=== PATIENT | female | born 1935 | race Caucasian/White ===

== ENCOUNTER 2023-04-29 16:27 | Inpatient (IN) | payer MEDICARE ==
[2023-04-29 18:24] LABS: Bacteria/HPF 2+ HPF (None Seen); Bilirubin Negative (Negative); Blood, Urine Negative (Negative); CAUTI Indications for Culture Alt mental st,lethar; Clarity Turbid (Clear); Glucose, Urine (Dipstick) Normal (Negative); Ketone, Urine Negative (Negative); Leukocyte 250 Leu/uL (Negative); Nitrite 1+ (Negative); Protein, Urine (Dipstick) Negative (Neg-Trace); RBC/HPF 0-3 HPF (0-3); Specific Gravity, Urine 1.012 (1.002-1.036); Squamous Epithelial 0-3 HPF (0-3); Urobilinogen Normal mg/dL (Less than 2)
[2023-04-29 18:25] LABS: Urine Culture Reflex No No
[2023-04-29 18:26] LABS: #Eosinphils 0.1 thou/uL (0.0-0.7); #Monocytes 0.5 thou/uL (0.11-0.59); #Neutrophils 8.8 thou/uL (1.40-6.50); %Basophils 0.3 % (0.0-1.0); %Lymphocytes 11.9 % (21.0-51.0); %Monocytes 4.9 % (0.0-10.0); %Neutrophils 81.5 % (42.0-75.0); Hematocrit 40.9 % (36.0-47.0); Hemoglobin 13.4 g/dL (12.0-16.0); Mean Corpuscular HGB CONC 32.8 g/dL (32.0-36.0); Mean Corpuscular Volume 91.5 fl (78.0-98.0); Mean Platelet Volume 11.4 fL (7.4-10.4); Platelet Count 206 10x3/uL (130-400); RBC Distribution Width 14.6 % (11.5-14.5); Red Blood Cell (RBC) Count 4.47 mill/uL (4.20-5.40); White Blood Cell (WBC) Count 10.8 10x3/uL (4.8-10.8)
[2023-04-29 18:48] LABS: ALT (SGPT) 13 U/L (8-55); AST (SGOT) 21 U/L (5-34); Alkaline Phosphatase 108 U/L (40-110); Anion Gap 13 mmol/L (10-20); BUN (Urea Nitrogen) 18 mg/dL (9.8-20.1); Bilirubin, Total 0.5 mg/dL (0.2-1.2); Calc. Creatinine Clearance 0 mL/min (70-130); Calcium 9.1 mg/dL (7.8-10.44); Carbon Dioxide 27 mmol/L (23-31); Chloride 103 mmol/L (98-107); Estimated GFR 57; Globulin 2.6 g/dL (2.4-3.5); Glucose 207 mg/dL (83-110); Protein, Total 6.6 g/dL (5.8-8.1); Sodium 140 mmol/L (136-145)
[2023-04-29 18:53] LABS: Troponin I 0.019 ng/mL (< 0.028)
[2023-04-29] MEDS ORDERED: Ondansetron PF 4 MG/2 ML Vial IVP PRN (19:25)
[2023-04-29] MEDS ORDERED: Acetaminophen 325 MG TAB PO PRN (19:25)
[2023-04-29] MEDS ORDERED: Ipratropium/Albuterol 3 ML NEB EZPAP PRN (19:28)
[2023-04-29] MEDS ORDERED: Potassium Chloride 20 MEQ TAB ONE (19:29)
[2023-04-29] MEDS ORDERED: LevoFLOXacin 750 mg/D5W 150 ml Premix Bag ONE (19:29)
[2023-04-29 20:00] LABS: Magnesium 1.7 mg/dL (1.6-2.6)
[2023-04-29] MEDS ORDERED: Potassium Chloride 20 MEQ (100 mL) BAG ONE (20:51)
[2023-04-29 21:19] LABS: Lactic Acid 2.4 mmol/L (0.5-2.2)
[2023-04-29] MEDS: Magnesium 2 GM/50 ML(in water) 2 GM in Premix 1 BAG IVPB SCH (21:40)
[2023-04-29 22:27] VITALS: BMI 26.6
[2023-04-30 05:21] LABS: #Eosinphils 0.3 thou/uL (0.0-0.7); #Monocytes 0.9 thou/uL (0.11-0.59); #Neutrophils 5.1 thou/uL (1.40-6.50); %Basophils 0.3 % (0.0-1.0); %Eosinophils 3.1 % (0.0-10.0); %Lymphocytes 29.1 % (21.0-51.0); %Monocytes 9.7 % (0.0-10.0); %Neutrophils 57.6 % (42.0-75.0); Hematocrit 38.9 % (36.0-47.0); Hemoglobin 12.5 g/dL (12.0-16.0); Mean Corpuscular HGB CONC 32.1 g/dL (32.0-36.0); Mean Corpuscular Hemoglobin 29.8 pg (27.0-31.0); Mean Corpuscular Volume 92.8 fl (78.0-98.0); Mean Platelet Volume 11.5 fL (7.4-10.4); Platelet Count 200 10x3/uL (130-400); RBC Distribution Width 14.6 % (11.5-14.5); Red Blood Cell (RBC) Count 4.19 mill/uL (4.20-5.40); White Blood Cell (WBC) Count 8.8 10x3/uL (4.8-10.8)
[2023-04-30 06:01] LABS: Anion Gap 12 mmol/L (10-20); BUN (Urea Nitrogen) 15 mg/dL (9.8-20.1); Calc. Creatinine Clearance 55 mL/min (70-130); Calcium 9.4 mg/dL (7.8-10.44); Carbon Dioxide 27 mmol/L (23-31); Chloride 105 mmol/L (98-107); Estimated GFR 68; Glucose 102 mg/dL (83-110); Magnesium 2.1 mg/dL (1.6-2.6); Potassium 3.4 mmol/L (3.5-5.1); Sodium 141 mmol/L (136-145)
[2023-04-30] MEDS: Sertraline 25 MG TAB PO SCH (08:27)
[2023-04-30] MEDS: Atorvastatin Calcium 40 MG TAB PO SCH (08:27)
[2023-04-30] MEDS: Furosemide 40 MG TAB PO SCH (08:27)
[2023-04-30] MEDS: Aspirin Chewable 81 MG TAB PO SCH (08:27)
[2023-04-30] MEDS: Potassium Bicarbonate/Cit Ac 20 MEQ TAB PO SCH (10:15)
[2023-04-30] MEDS ORDERED: Methyl Salicylate/Menthol 85 GM TUBE TOP PRN (13:55)
[2023-04-30] MEDS ORDERED: Senokot 8.6 MG TAB PO PRN (13:58)
[2023-04-30] MEDS: Gabapentin 100 MG CAP PO SCH ×2 (14:29→19:51)
[2023-04-30] MEDS: Acetaminophen 325 MG TAB PO PRN (14:30)
[2023-04-30] MEDS: LevoFLOXacin 250 mg/D5W 250 MG in Premix 1 BAG IVPB SCH (19:51)
[2023-04-30] MEDS: Magnesium Oxide 400 MG TAB PO SCH (19:52)
[2023-04-30] MEDS: Cyanocobalamin (Vitamin B-12) 1,000 MCG TAB PO SCH (19:52)
[2023-04-30] MEDS: Multivit, Therapeutic 1 TAB PO SCH (19:52)
[2023-04-30] MEDS: Heparin 5,000 UNITS/ML VIAL SC SCH (19:52)
[2023-04-30] MEDS: Melatonin 3 MG TAB PO PRN (23:17)
[2023-05-01] MEDS: Gabapentin 100 MG CAP PO SCH ×2 (01:58→10:18)
[2023-05-01 05:17] LABS: #Basophils 0.1 thou/uL (0.0-0.2); #Eosinphils 0.4 thou/uL (0.0-0.7); #Monocytes 0.8 thou/uL (0.11-0.59); #Neutrophils 5.8 thou/uL (1.40-6.50); %Basophils 0.5 % (0.0-1.0); %Eosinophils 3.9 % (0.0-10.0); %Lymphocytes 28.8 % (21.0-51.0); %Monocytes 8.4 % (0.0-10.0); %Neutrophils 58.1 % (42.0-75.0); Hematocrit 40.9 % (36.0-47.0); Mean Corpuscular HGB CONC 31.8 g/dL (32.0-36.0); Mean Corpuscular Hemoglobin 29.4 pg (27.0-31.0); Mean Corpuscular Volume 92.5 fl (78.0-98.0); Mean Platelet Volume 11.4 fL (7.4-10.4); Platelet Count 203 10x3/uL (130-400); RBC Distribution Width 14.7 % (11.5-14.5); Red Blood Cell (RBC) Count 4.42 mill/uL (4.20-5.40)
[2023-05-01 05:54] LABS: Anion Gap 15 mmol/L (10-20); BUN (Urea Nitrogen) 15 mg/dL (9.8-20.1); Calc. Creatinine Clearance 52 mL/min (70-130); Calcium 9.5 mg/dL (7.8-10.44); Carbon Dioxide 28 mmol/L (23-31); Chloride 101 mmol/L (98-107); Estimated GFR 63; Glucose 117 mg/dL (83-110); Magnesium 1.9 mg/dL (1.6-2.6); Potassium 3.5 mmol/L (3.5-5.1); Sodium 140 mmol/L (136-145)
[2023-05-01] MEDS ORDERED: Gabapentin 100 MG CAP PO SCH (09:00)
[2023-05-01] MEDS: Carvedilol 6.25 MG TAB PO SCH (19:49)
[2023-05-01] MEDS: tiZANidine HCl 4 MG TAB PO PRN (22:14)
[2023-05-02 07:43] LABS: #Eosinphils 0.6 thou/uL (0.0-0.7); #Monocytes 0.7 thou/uL (0.11-0.59); #Neutrophils 4.7 thou/uL (1.40-6.50); %Basophils 0.4 % (0.0-1.0); %Eosinophils 5.9 % (0.0-10.0); %Monocytes 7.9 % (0.0-10.0); %Neutrophils 50.5 % (42.0-75.0); Hemoglobin 13.2 g/dL (12.0-16.0); Mean Corpuscular HGB CONC 32.2 g/dL (32.0-36.0); Mean Corpuscular Hemoglobin 29.7 pg (27.0-31.0); Mean Corpuscular Volume 92.3 fl (78.0-98.0); Mean Platelet Volume 11.7 fL (7.4-10.4); Platelet Count 214 10x3/uL (130-400); RBC Distribution Width 14.8 % (11.5-14.5); Red Blood Cell (RBC) Count 4.44 mill/uL (4.20-5.40); White Blood Cell (WBC) Count 9.3 10x3/uL (4.8-10.8)
[2023-05-02 08:08] LABS: Anion Gap 14 mmol/L (10-20); BUN (Urea Nitrogen) 19 mg/dL (9.8-20.1); Calc. Creatinine Clearance 48 mL/min (70-130); Calcium 9.7 mg/dL (7.8-10.44); Carbon Dioxide 31 mmol/L (23-31); Chloride 98 mmol/L (98-107); Estimated GFR 58; Glucose 126 mg/dL (83-110); Magnesium 1.8 mg/dL (1.6-2.6); Potassium 3.8 mmol/L (3.5-5.1); Sodium 139 mmol/L (136-145)
[2023-05-02] MEDS: Gabapentin 100 MG CAP PO SCH (14:50)
[2023-05-02] MEDS: Pregabalin 50 MG CAP PO SCH (21:11)
[2023-05-02] MEDS: Pregabalin 75 MG CAP PO SCH (21:21)
[2023-05-03] MEDS: Gabapentin 100 MG CAP PO SCH (08:38)
[2023-05-03] MEDS: fentaNYL 50 mcg/mL 1 mL Vial SLOW IVP SCH (12:14)
[2023-05-04] MEDS: Lorazepam 2 MG/ML VIAL SLOW IVP SCH (15:23)
[2023-05-06 15:04] VITALS: BP 118/66; TEMP 97.7
== END 2023-05-06 16:00 | disposition home health service (06) | DRG 872 ==
LOC: ERS 16:27 → 2NO 19:26 → OBSVTOIN 04-30 15:53 → T4-A 05-03 15:54
PROVIDERS: ADMIT Internal Medicine; ATTEND Internal Medicine
DX: A41.9 Sepsis, unspecified organism (principal); N39.0 Urinary tract infection, site not specified; I50.42 Chronic combined systolic (congestive) and diastolic (congestive) heart failure; E87.6 Hypokalemia; I95.9 Hypotension, unspecified; I48.0 Paroxysmal atrial fibrillation; I11.0 Hypertensive heart disease with heart failure; J44.9 Chronic obstructive pulmonary disease, unspecified; I25.10 Atherosclerotic heart disease of native coronary artery without angina pectoris; E78.5 Hyperlipidemia, unspecified; K21.9 Gastro-esophageal reflux disease without esophagitis; M19.90 Unspecified osteoarthritis, unspecified site; Z88.5 Allergy status to narcotic agent; Z88.1 Allergy status to other antibiotic agents; Z88.8 Allergy status to other drugs, medicaments and biological substances; Z79.82 Long term (current) use of aspirin; Z79.899 Other long term (current) drug therapy; Z95.1 Presence of aortocoronary bypass graft; Z90.710 Acquired absence of both cervix and uterus; Z96.641 Presence of right artificial hip joint; Z82.49 Family history of ischemic heart disease and other diseases of the circulatory system; Z87.891 Personal history of nicotine dependence; E83.42 Hypomagnesemia; G62.9 Polyneuropathy, unspecified
CPT/HCPCS: 36415; 36416; 71045; 72131; 80048; 80053; 81001; 83605; 83735; 84484; 85025; 87077; 87086; 87186; 93005; 93306; 96365; J1644; J1956; J2060; J3010; J3475; J3480

== ENCOUNTER 2023-10-19 15:53 | Outpatient (CLI) | payer MEDICARE | END 2023-10-19 15:54 | disposition home or self-care (01) | LOC: BICRAD 15:53 → RAD 15:54 | PROVIDERS: ATTEND Family Medicine | DX: M25.552 Pain in left hip (principal); M16.12 Unilateral primary osteoarthritis, left hip; M21.852 Other specified acquired deformities of left thigh ==

== ENCOUNTER 2024-01-12 05:37 | Inpatient (IN) | payer MEDICARE ==
[2024-01-05 12:39] VITALS: BMI 25.7
[2024-01-12] MEDS ORDERED: Tranexamic Acid 1,000 MG/10 ML VIAL ONE (06:01)
[2024-01-12] MEDS ORDERED: Sodium Chloride 0.9% 100 ML ONE (06:01)
[2024-01-12] MEDS ORDERED: Vancomycin 1 GM/200 ML (FROZEN) BAG ONE (06:02)
[2024-01-12] MEDS ORDERED: fentaNYL 50 mcg/mL 1 mL Vial ONE ×2 (06:44→07:20)
[2024-01-12] MEDS ORDERED: CEFAZOLIN 2 GM VIAL ONE (07:01)
[2024-01-12] MEDS ORDERED: Ropivacaine 0.2% HCl/PF 20 ML ONE (07:16)
[2024-01-12] MEDS ORDERED: Lidocaine 1.5% w/Epi 1:200K 30 ML VIAL (Epid Use) ONE (07:20)
[2024-01-12] MEDS ORDERED: Ondansetron PF 4 MG/2 ML Vial ONE (07:20)
[2024-01-12] MEDS ORDERED: Rocuronium Bromide 10 MG/ML (10ML VIAL) ONE (07:20)
[2024-01-12] MEDS ORDERED: PROPOFOL 20 ML ONE (07:20)
[2024-01-12] MEDS ORDERED: PHENYLEPHRINE-NS 100 MCG/ML 10 ML SYRINGE ONE ×2 (07:20→09:07)
[2024-01-12] MEDS ORDERED: Lidocaine 1% PF 5 ML VIAL ONE (07:20)
[2024-01-12] MEDS ORDERED: ePHEDrine Sulfate 50 MG/10 ML VIAL ONE (07:27)
[2024-01-12] MEDS ORDERED: FENTANYL 500 MCG/10 ML VIAL 500 MCG, Bupivacaine 0.75% 10 ML in Sodium Chloride 0.9% 80 ML EPIDURAL SCH (08:00)
[2024-01-12] MEDS ORDERED: Naloxone HCl 0.4 mg/ml Vial IVP PRN (08:00)
[2024-01-12] MEDS ORDERED: Ondansetron PF 4 MG/2 ML Vial IVP PRN (08:00)
[2024-01-12] MEDS ORDERED: Bupivacaine 0.25% 10 ML VIAL EPIDURAL PRN (08:00)
[2024-01-12] MEDS ORDERED: Promethazine HCl 25 MG SUPP PR PRN (08:00)
[2024-01-12] MEDS ORDERED: Promethazine HCl 25 MG/ML VIAL IM PRN ×2 (08:00→09:41)
[2024-01-12] MEDS ORDERED: Naloxone HCl 0.4 mg/ml Vial IV PRN (08:00)
[2024-01-12] MEDS ORDERED: SUGAMMADEX SODIUM 200 MG/2 ML VIAL ONE (09:06)
[2024-01-12] MEDS ORDERED: Acetaminophen 325 MG TAB PO PRN (09:31)
[2024-01-12] MEDS ORDERED: Ondansetron HCl/PF 4 MG/2 ML Vial IVP PRN (09:41)
[2024-01-12] MEDS: Sodium Chloride 0.9% 1,000 ML IV SCH (11:15)
[2024-01-12] MEDS: Aspirin 81 mg Enteric Coated Tablet PO SCH ×2 (11:54→20:21)
[2024-01-12] MEDS: Pantoprazole DR 40 MG TAB PO SCH ×2 (11:55→20:21)
[2024-01-12] MEDS: Furosemide 40 MG TAB PO SCH (11:55)
[2024-01-12] MEDS: Carvedilol 6.25 MG TAB PO SCH ×2 (11:55→20:21)
[2024-01-12] MEDS: Sertraline 25 MG TAB PO SCH (11:55)
[2024-01-12] MEDS: Acetaminophen 325 MG TAB PO SCH (12:25)
[2024-01-12] MEDS: Ketorolac Tromethamine 30 MG (1 mL) VIAL IVP SCH (12:26)
[2024-01-12] MEDS: Moisturizing Cream (Eucerin) 113 GM JAR TOP PRN (17:31)
[2024-01-12] MEDS: diphenhydrAMINE 25 MG CAP PO PRN (17:31)
[2024-01-12] MEDS: CEFAZOLIN 2 GM in Sodium Chloride 0.9% 100 ML IVPB SCH (17:31)
[2024-01-12] MEDS: traMADol HCl 50 MG TAB PO PRN (20:22)
[2024-01-12] MEDS ORDERED: Carvedilol 6.25 MG TAB PO SCH (21:00)
[2024-01-13 05:57] LABS: Hemoglobin 9.1 g/dL (12.0-16.0); Mean Corpuscular HGB CONC 30.3 g/dL (32.0-36.0); Mean Corpuscular Hemoglobin 28.7 pg (27.0-31.0); Mean Corpuscular Volume 94.6 fL (78.0-98.0); Mean Platelet Volume 11.6 fL (7.4-10.4); Platelet Count 197 10x3/uL (130-400); RBC Distribution Width 17.3 % (11.5-14.5); Red Blood Cell (RBC) Count 3.17 mill/uL (4.20-5.40)
[2024-01-13] MEDS ORDERED: Fluticasone Propionate Nasal Spray 16 gm Bottle NASAL PRN (06:53)
[2024-01-13] MEDS ORDERED: Labetalol HCl 100 MG/20 ML VIAL SLOW IVP PRN ×2 (08:12→13:55)
[2024-01-13] MEDS: Vit A,C & E/Lutein/Minerals Tablet PO SCH (08:39)
[2024-01-13] MEDS: Multivitamin W/ Minerals 1 TAB PO SCH (08:39)
[2024-01-13] MEDS: Senokot S 8.6-50 MG TAB PO SCH (08:40)
[2024-01-13] MEDS: Sertraline 25 MG TAB PO SCH (08:41)
[2024-01-13] MEDS: Ferrous Gluconate 324 MG TAB PO SCH (08:43)
[2024-01-13] MEDS: FLU (Fluad Triv) TS24-25 (65UP)/MF59C/PF 45 MCG/0.5 ML Syringe IM ONE (08:52)
[2024-01-13] MEDS ORDERED: Furosemide 40 MG TAB PO SCH (09:00)
[2024-01-13] MEDS: Ondansetron PF 4 MG/2 ML Vial IVP PRN (11:48)
[2024-01-13] MEDS: Promethazine HCl 25 MG/ML VIAL IM PRN (13:30)
[2024-01-13] MEDS ORDERED: hydrALAZINE 25 MG TAB PO PRN (13:57)
[2024-01-13] MEDS: Lactated Ringer's 1,000 ML IV SCH (15:49)
[2024-01-13 16:20] LABS: Anion Gap 13 mmol/L (10-20); BUN (Urea Nitrogen) 36 mg/dL (9.8-20.1); Calc. Creatinine Clearance 39 mL/min (70-130); Calcium 8.2 mg/dL (7.8-10.44); Carbon Dioxide 25 mmol/L (23-31); Chloride 102 mmol/L (98-107); Estimated GFR 49; Glucose 156 mg/dL (83-110); Magnesium 1.7 mg/dL (1.6-2.6); Potassium 4.4 mmol/L (3.5-5.1); Sodium 136 mmol/L (136-145)
[2024-01-13] MEDS: Metoprolol Tartrate 25 MG TAB PO SCH (20:39)
[2024-01-13] MEDS: Bisacodyl 10 MG SUPP PR SCH (20:39)
[2024-01-13] MEDS: Cyanocobalamin (Vitamin B-12) 1,000 MCG TAB PO SCH (20:39)
[2024-01-14] MEDS: Magnesium 2 GM/50 ML(in water) 2 GM in Premix 1 BAG IVPB SCH (00:08)
[2024-01-14 05:42] LABS: Hematocrit 23.8 % (36.0-47.0); Hemoglobin 7.4 g/dL (12.0-16.0); Mean Corpuscular HGB CONC 31.1 g/dL (32.0-36.0); Mean Corpuscular Hemoglobin 28.6 pg (27.0-31.0); Mean Corpuscular Volume 91.9 fL (78.0-98.0); Mean Platelet Volume 11.8 fL (7.4-10.4); Platelet Count 183 10x3/uL (130-400); RBC Distribution Width 17.1 % (11.5-14.5); Red Blood Cell (RBC) Count 2.59 mill/uL (4.20-5.40)
[2024-01-14 05:54] LABS: Anion Gap 13 mmol/L (10-20); BUN (Urea Nitrogen) 51 mg/dL (9.8-20.1); Calc. Creatinine Clearance 53 mL/min (70-130); Calcium 8.5 mg/dL (7.8-10.44); Carbon Dioxide 24 mmol/L (23-31); Chloride 105 mmol/L (98-107); Estimated GFR 70; Glucose 132 mg/dL (83-110); Potassium 4.6 mmol/L (3.5-5.1); Sodium 137 mmol/L (136-145)
[2024-01-14] MEDS: Polyethylene Glycol 3350 17 GM Packet PO SCH ×2 (10:44→20:49)
[2024-01-14] MEDS: Mineral Oil ENEMA PR SCH ×2 (14:02→14:47)
[2024-01-14] MEDS: traMADol HCl 50 MG TAB PO PRN (20:47)
[2024-01-15 03:57] LABS: Hematocrit 20.1 % (36.0-47.0); Hemoglobin 6.2 g/dL (12.0-16.0); Mean Corpuscular HGB CONC 30.8 g/dL (32.0-36.0); Mean Corpuscular Hemoglobin 28.4 pg (27.0-31.0); Mean Corpuscular Volume 92.2 fL (78.0-98.0); Mean Platelet Volume 11.6 fL (7.4-10.4); Platelet Count 188 10x3/uL (130-400); RBC Distribution Width 17.6 % (11.5-14.5); Red Blood Cell (RBC) Count 2.18 mill/uL (4.20-5.40)
[2024-01-15 04:42] LABS: Anion Gap 12 mmol/L (10-20); BUN (Urea Nitrogen) 40 mg/dL (9.8-20.1); Calc. Creatinine Clearance 53 mL/min (70-130); Calcium 8.3 mg/dL (7.8-10.44); Carbon Dioxide 23 mmol/L (23-31); Chloride 108 mmol/L (98-107); Estimated GFR 70; Glucose 96 mg/dL (83-110); Potassium 4.3 mmol/L (3.5-5.1); Sodium 139 mmol/L (136-145)
[2024-01-15] MEDS: diphenhydrAMINE 50 MG/ML VIAL IVP SCH (15:50)
[2024-01-15 16:01] LABS: Hematocrit 23.4 % (36.0-47.0); Hemoglobin 7.7 g/dL (12.0-16.0)
[2024-01-15 16:19] LABS: INR-International Normal Ratio 1.6; Prothrombin Time 18.7 sec (12.0-14.7)
[2024-01-15 16:20] LABS: Iron 19 ug/dL (50-170); Iron Binding Capacity, Total 244 mcg/dL (265-497); PTT 45.1 sec (22.9-36.1)
[2024-01-15 16:21] LABS: ALT (SGPT) Less than 5 U/L (8-55); AST (SGOT) 16 U/L (5-34); Albumin 2.2 g/dL (3.4-4.8); Alkaline Phosphatase 79 U/L (40-110); Bilirubin, Direct 0.3 mg/dL (0.1-0.3); Bilirubin, Total 0.5 mg/dL (0.2-1.2); Protein, Total 4.8 g/dL (5.8-8.1)
[2024-01-15 16:42] LABS: Thyroid Stimulating Hormone 0.7781 uIU/mL (0.35-4.94)
[2024-01-15] MEDS: Sodium Ferric Gluconate 250 MG in Sodium Chloride 0.9% 250 ML 250 ML IVPB SCH (18:56)
[2024-01-16 05:25] LABS: Hematocrit 25.2 % (36.0-47.0); Hemoglobin 7.9 g/dL (12.0-16.0); Mean Corpuscular HGB CONC 31.3 g/dL (32.0-36.0); Mean Corpuscular Hemoglobin 29.7 pg (27.0-31.0); Mean Corpuscular Volume 94.7 fL (78.0-98.0); Mean Platelet Volume 11.3 fL (7.4-10.4); Platelet Count 198 10x3/uL (130-400); RBC Distribution Width 17.8 % (11.5-14.5); Red Blood Cell (RBC) Count 2.66 mill/uL (4.20-5.40)
[2024-01-16 16:26] LABS: Hematocrit 25.6 % (36.0-47.0)
[2024-01-16] MEDS: Pantoprazole 40 MG VIAL IVP SCH (19:52)
[2024-01-17 00:11] LABS: Hematocrit 26.5 % (36.0-47.0); Hemoglobin 8.1 g/dL (12.0-16.0)
[2024-01-17] MEDS: Zolpidem Tartrate 5 MG TAB PO PRN (00:56)
[2024-01-17] MEDS: Albuterol 200 PUFF (6.7GM INHALER) INH PRN (03:46)
[2024-01-17 04:32] LABS: Hematocrit 25.7 % (36.0-47.0); Hemoglobin 7.9 g/dL (12.0-16.0); Mean Corpuscular HGB CONC 30.7 g/dL (32.0-36.0); Mean Corpuscular Hemoglobin 28.7 pg (27.0-31.0); Mean Corpuscular Volume 93.5 fL (78.0-98.0); Mean Platelet Volume 11.4 fL (7.4-10.4); Platelet Count 231 10x3/uL (130-400); RBC Distribution Width 17.9 % (11.5-14.5); Red Blood Cell (RBC) Count 2.75 mill/uL (4.20-5.40)
[2024-01-17] MEDS ORDERED: PROPOFOL 20 ML ONE (09:38)
[2024-01-17] MEDS ORDERED: Lidocaine 1% PF 5 ML VIAL ONE (09:38)
[2024-01-17] MEDS ORDERED: Ondansetron PF 4 MG/2 ML Vial ONE (10:59)
[2024-01-17] MEDS: Vit A,C & E/Lutein/Minerals Tablet PO SCH (20:11)
[2024-01-17] MEDS: Pantoprazole DR 40 MG TAB PO SCH (20:12)
[2024-01-17] MEDS: Carvedilol 6.25 MG TAB PO SCH (20:12)
[2024-01-17] MEDS: Melatonin 3 MG TAB PO PRN (21:21)
[2024-01-18 05:01] LABS: Hematocrit 29.5 % (36.0-47.0); Mean Corpuscular HGB CONC 30.5 g/dL (32.0-36.0); Mean Corpuscular Hemoglobin 29.3 pg (27.0-31.0); Mean Corpuscular Volume 96.1 fL (78.0-98.0); Platelet Count 215 10x3/uL (130-400); RBC Distribution Width 17.7 % (11.5-14.5); Red Blood Cell (RBC) Count 3.07 mill/uL (4.20-5.40)
[2024-01-18] MEDS: Furosemide 40 MG TAB PO SCH (08:33)
[2024-01-18] MEDS: Sertraline 25 MG TAB PO SCH (08:33)
[2024-01-18] MEDS: Benzonatate 100 MG CAP PO SCH ×2 (10:20→15:04)
[2024-01-18] MEDS: Furosemide 20 MG (2 mL) VIAL SLOW IVP SCH (17:57)
[2024-01-19 04:54] LABS: Hematocrit 26.6 % (36.0-47.0); Hemoglobin 8.4 g/dL (12.0-16.0); Mean Corpuscular HGB CONC 31.6 g/dL (32.0-36.0); Mean Corpuscular Hemoglobin 29.8 pg (27.0-31.0); Mean Corpuscular Volume 94.3 fL (78.0-98.0); Mean Platelet Volume 10.6 fL (7.4-10.4); Platelet Count 241 10x3/uL (130-400); RBC Distribution Width 17.9 % (11.5-14.5); Red Blood Cell (RBC) Count 2.82 mill/uL (4.20-5.40)
[2024-01-19] MEDS: Ferrous Sulfate 325 MG TAB PO SCH (08:50)
[2024-01-19] MEDS ORDERED: Morphine 2 MG/ML VIAL SLOW IVP PRN (14:05)
[2024-01-19] MEDS: Ipratropium/Albuterol 3 ML NEB NEB SCH (16:37)
[2024-01-19] MEDS ORDERED: Loperamide HCl 2 MG CAP PO PRN (18:24)
[2024-01-19] MEDS: Loperamide HCl 2 MG CAP PO SCH (18:48)
[2024-01-20] MEDS: Fluticasone Propionate Nasal Spray 16 gm Bottle NASAL PRN (05:34)
[2024-01-20 06:03] LABS: Hematocrit 28.4 % (36.0-47.0); Mean Corpuscular HGB CONC 31.7 g/dL (32.0-36.0); Mean Corpuscular Hemoglobin 29.4 pg (27.0-31.0); Mean Corpuscular Volume 92.8 fL (78.0-98.0); Mean Platelet Volume 10.6 fL (7.4-10.4); Platelet Count 293 10x3/uL (130-400); RBC Distribution Width 18.2 % (11.5-14.5); Red Blood Cell (RBC) Count 3.06 mill/uL (4.20-5.40)
[2024-01-20] MEDS: Aspirin 81 mg Enteric Coated Tablet PO SCH (09:00)
[2024-01-20 11:38] VITALS: BP 115/65; TEMP 97.6
== END 2024-01-20 14:57 | disposition home or self-care (01) | DRG 469 ==
LOC: SDC 05:37 → SURG A 11:37 → SDC 13:32 → SURG A 13:32 → OBSVTOIN 01-13 08:55
PROVIDERS: ADMIT Orthopaedic Surgery; ATTEND Orthopaedic Surgery
PROC: 0SRB0JZ Replacement of Left Hip Joint with Synthetic Substitute, Open Approach (ICD-10-PCS; principal; 2024-01-12)
PROC: 0DJ08ZZ Inspection of Upper Intestinal Tract, Via Natural or Artificial Opening Endoscopic (ICD-10-PCS; 2024-01-17)
DX: M16.12 Unilateral primary osteoarthritis, left hip (principal); K25.4 Chronic or unspecified gastric ulcer with hemorrhage; M87.852 Other osteonecrosis, left femur; I50.42 Chronic combined systolic (congestive) and diastolic (congestive) heart failure; D62 Acute posthemorrhagic anemia; J44.9 Chronic obstructive pulmonary disease, unspecified; Z96.641 Presence of right artificial hip joint; I25.10 Atherosclerotic heart disease of native coronary artery without angina pectoris; I11.0 Hypertensive heart disease with heart failure; F41.9 Anxiety disorder, unspecified; I48.0 Paroxysmal atrial fibrillation; K59.00 Constipation, unspecified; R19.7 Diarrhea, unspecified; E83.42 Hypomagnesemia; K21.9 Gastro-esophageal reflux disease without esophagitis; E78.5 Hyperlipidemia, unspecified; Z79.82 Long term (current) use of aspirin; Z79.899 Other long term (current) drug therapy; Z95.0 Presence of cardiac pacemaker; Z88.5 Allergy status to narcotic agent; Z88.0 Allergy status to penicillin; Z88.8 Allergy status to other drugs, medicaments and biological substances; Z95.1 Presence of aortocoronary bypass graft; Z87.891 Personal history of nicotine dependence; K25.9 Gastric ulcer, unspecified as acute or chronic, without hemorrhage or perforation; K44.9 Diaphragmatic hernia without obstruction or gangrene
CPT/HCPCS: 36415; 36430; 71045; 72170; 74018; 80048; 80076; 82728; 83540; 83550; 83615; 83735; 84443; 85027; 85046; 85610; 85730; 86850; 86900; 86901; 90653; 94640; C1713; C1776; J1200; J1885; J1940; J2405; J2470; J2550; J2704; J2795; J2916; J3010; J3370-JW; J3475; J3490; J7030; J7050; J7120; J7620; P9016